=== PATIENT | female | born 1960 | race Caucasian/White ===

== ENCOUNTER 2020-02-24 22:51 | Emergency (ER) | payer BC ==
--- NOTE | 2020-02-25 00:34 | ER Document Report ---
ED Medical Screen (RME) - General Chief Complaint: Foot Pain Stated Complaint: LEFT FOOT PAIN Time Seen by Provider: 02/25/20 00:26 Mode of Arrival: Wheelchair Information source: Patient Notes: 60-year-old female presented to ED for complaint of sudden pain to her left foot around 6 PM tonight. She states she does not know of any injury. She called the nurse line at the [facility] and they told her to come to the emergency room to ensure that she does not have a DVT in her foot. 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 She states she just stopped taking Plavix on Tuesday. She states she is here on vacation. She had a recent hip surgery and is in PT for recovery. She states she does not smoke or use any illicit drugs she does normally drink once a week but [place] the beach she is drinking daily. She does live with her family. Patient is alert oriented respirations regular nonlabored speaking in full sentences. We will get a foot x-ray offer her a ice pack and have her seen by 1 of the doctors. I have greeted and performed a rapid initial assessment of this patient. A comprehensive ED assessment and evaluation of the patient, analysis of test results and completion of medical decision making process will be conducted by an additional ED providers. Physical Exam - Vital signs Vitals: Temp Pulse Resp BP Pulse Ox 97.7 F 78 18 129/68 H 100 02/24/20 23:01 02/24/20 23:01 02/24/20 23:01 02/24/20 23:01 02/24/20 23:01 Course - Vital Signs Vital signs: Temp Pulse Resp BP Pulse Ox 97.7 F 78 18 129/68 H 100 02/24/20 23:01 02/24/20 23:01 02/24/20 23:01 02/24/20 23:01 02/24/20 23:01
--- NOTE | 2020-02-25 01:19 | RADIOLOGY REPORT (SQ) ---
EXAM DESCRIPTION: Left foot [facility]Lex: XR FOOT 3 OR MORE VIEWS Views: 3 CLINICAL HISTORY: 60 years Female; Some pain about 6 PM top of the left foot; COMPARISON: None. FINDINGS: External material somewhat obscures bony detail. Cannot exclude nondisplaced fractures of the distal phalanges of the 4th and 5th toes; please correlate with clinical exam. Other bones are intact. No hyperdense foreign bodies. IMPRESSION: 1. No displaced fractures. 2. Possible nondisplaced fractures of the 4th and 5th distal phalanges. Please correlate with clinical findings
[2020-02-25] MEDS ORDERED: KETOROLAC TROMETHAMINE INJ/PF 30 MG/1 ML SDV IV ONE (01:52)
--- NOTE | 2020-02-25 03:06 | ER Document Report ---
ED Extremity Problem, Lower - General Chief Complaint: Foot Pain Stated Complaint: LEFT FOOT PAIN Time Seen by Provider: 02/25/20 00:26 Primary Care Provider: OMAR VARGAS DO [ACTIVE STAFF] - Follow up as needed Mode of Arrival: Wheelchair Information source: Patient, Relative Notes: Patient is a 51-year-old female comes emergency room complaining of pain to the great toe on her left foot. Patient states she was just sitting on the deck and all of a sudden had instant pain. She was not been able to bear weight on it since that point time. She denies any history of gout in the past. She denies any known traumatic events. She states they were just sitting on the porch when the pain started. Patient has a significant past medical history pertinent for kidney stents placed back in August. She just stopped taking Plavix this past Tuesday and started a baby aspirin. She does have a history of DVTs when she was younger but nothing since that point time. She is not been on a long trip she denies any pain in the legs. This only pain is in her left great toe area. TRAVEL OUTSIDE OF THE [place] IN LAST 30 DAYS: No - HPI Patient complains to provider of: Pain, Swelling Location: Great Toe Occurred: Just prior to arrival Where: Public place Onset/Duration: Sudden, Persistent, Worse Quality of pain: Burning, Sharp, Throbbing Severity: Severe Pain Level: 5 Context: denies: Barefoot, Burn, Crush, Direct blow, Fell, Prolonged pressure on ext, Recent immobilization, Recent surgery, Stubbed, Twisted, Wearing shoes Recent injury: No Associated symptoms: Unable to bear weight Exacerbated by: Movement, Walking Relieved by: Rest - Related Data Allergies/Adverse Reactions: Opioids - Morphine Analogues Allergy (Verified 02/25/20 00:34) Past Medical History - General Information source: Patient - Social History Smoking Status: Never Smoker Cigarette use (# per day): No Chew tobacco use (# tins/day): No Smoking Education Provided: No Frequency of alcohol use: None Drug Abuse: None Lives with: Family Family History: Reviewed & Not Pertinent Review of Systems - Review of Systems Constitutional: No symptoms reported EENT: No symptoms reported Cardiovascular: No symptoms reported Respiratory: No symptoms reported Gastrointestinal: No symptoms reported Genitourinary: No symptoms reported Female Genitourinary: No symptoms reported Musculoskeletal: See HPI, Joint pain, Joint swelling Skin: No symptoms reported Hematologic/Lymphatic: No symptoms reported Neurological/Psychological: No symptoms reported -: Yes All other systems reviewed and negative Physical Exam - Vital signs Vitals: Temp Pulse Resp BP Pulse Ox 97.7 F 78 18 129/68 H 100 02/24/20 23:01 02/24/20 23:01 02/24/20 23:01 02/24/20 23:01 02/24/20 23:01 Interpretation: Normal - Notes Notes: PHYSICAL EXAMINATION: GENERAL: Patient is a well-nourished well-developed 51-year-old female no apparent distress on examination. She does however appear uncomfortable. HEAD: Atraumatic, normocephalic. LUNGS: Breath sounds clear to auscultation bilaterally and equal. No wheezes rales or rhonchi. HEART: Regular rate and rhythm without murmurs en. No guarding, no rebound. No masses appreciated. Female : deferred Musculoskeletal: Examination patient's area concern is her left great toe area. There is some noticeable swelling compared to the right great toe area. There is some minimal amount of erythema but skin temperature appears to be same on both left and right great toes. She has good cap refill in nailbeds of both toes. Patient has increased discomfort with flexion extension of the toe. She also has moderate discomfort with palpation of the toe at the base. NEUROLOGICAL: . Normal speech, normal gait. Normal sensory, motor exams PSYCH: Normal mood, normal affect. SKIN: Warm, Dry, normal turgor, no rashes or lesions noted. Course - Re-evaluation Re-evalutation: 02/25/20 03:11 Patient's presentation was not 1 of any history of blood clots. The x-ray read that there is a possibility of nondisplaced fractures of the fourth and fifth metatarsals. However patient had no pain or discomfort in the area. There is also no history of trauma. Therefore we did not address this. The other possible factor was a gout presentation. Her uric acid level that was negative for uric uric acid type presentation for true gout although again this goes along with a pseudogout presentation. There is no sign of infection. So at this point we will treat this with an anti-inflammatory. Patient did receive moderate amount of relief with the Toradol injection. - Vital Signs Vital signs: Temp Pulse Resp BP Pulse Ox 97.7 F 78 18 129/68 H 100 02/24/20 23:01 02/24/20 23:01 02/24/20 23:01 02/24/20 23:01 02/24/20 23:01 Discharge - Discharge Clinical Impression: Pseudogout of foot Qualifiers: Laterality: left Qualified Code(s): M11.279 - Other chondrocalcinosis, unspecified ankle and foot Condition: Stable Disposition: HOME, SELF-CARE Instructions: Pseudogout (OM) Additional Instructions: Home and hold your baby aspirin until you have had 3 days 4 days of the indomethacin. After that restart your baby aspirin. When you get back home appointment with your primary care doctor for reevaluation. Should he have any concerns or problems while still here in [place] you can return to ER for reevaluation. Prescriptions: Indomethacin 50 mg PO TID PRN #21 capsule PRN Reason: Referrals: OMAR VARGAS DO [ACTIVE STAFF] - Follow up as needed
[2020-02-25 03:52] VITALS: BP 104/69
== END 2020-02-25 03:37 | disposition home or self-care (01) ==
LOC: ER 22:51
DX: M11.2 Other chondrocalcinosis (principal)
CPT/HCPCS: 99284; 96374; 36415; 84550; 73630; J1885